=== PATIENT | male | born 1990 | race Caucasian/White ===

== ENCOUNTER 2024-02-21 17:34 | Outpatient (CLI) | payer MEDICARE, MEDICAID | END 2024-02-21 23:59 | disposition critical access hospital (66) | LOC: EMS 17:34 | DX: F10.129 Alcohol abuse with intoxication, unspecified (principal); R40.4 Transient alteration of awareness | CPT/HCPCS: A0425; A0429 ==

== ENCOUNTER 2024-02-21 17:53 | Emergency (ER) | payer MEDICARE, MEDICAID ==
[2024-02-21 19:08] LABS: BASOPHILS % (AUTO) 0.4 %; EOSINOPHILS % (AUTO) 0.4 %; HCT - HEMATOCRIT 47.1 % (42.0-52.0); HGB - HEMOGLOBIN 15.3 g/dL (14.0-18.0); LYMPHOCYTES # (AUTO) 1.4 10^3/uL (1.5-3.5); MEAN CORPUSCULAR HEMOGLOBIN 29.7 pg (27.0-31.0); MEAN CORPUSCULAR HGB CONC 32.5 g/dL (32.0-36.0); MEAN CORPUSCULAR VOLUME 91.3 fL (80.0-94.0); MEAN PLATELET VOLUME 9.4 fL (7.4-11.4); MONOCYTES # (AUTO) 0.5 10^3/uL (0.0-1.0); MONOCYTES % (AUTO) 5.8 %; NEUTROPHILS % (AUTO) 74.8 %; PLT - PLATELET COUNT 299 10^3/uL (130-450); RED BLOOD COUNT 5.16 10^6/uL (4.70-6.10); RED CELL DISTRIBUTION WIDTH 12.6 % (12.0-15.0)
[2024-02-21] MEDS: THIAMINE INJ 100 MG, MAGNESIUM SULFATE 2 GM, MULTIVITAMIN 10 ML, FOLIC ACID INJ 1 MG in... IV STA (19:10)
[2024-02-21 19:18] LABS: ETOH - ETHANOL 283.4 mg/dL
[2024-02-21 19:20] LABS: POTASSIUM 4.3 mmol/L (3.5-4.5)
[2024-02-21 19:22] LABS: ALBUMIN 4.7 g/dL (3.2-5.5); ALBUMIN/GLOBULIN RATIO 1.6 (1.0-2.2); BILIRUBIN,TOTAL 0.6 mg/dL (0.2-1.0); CALCIUM 9.8 mg/dL (8.5-10.3); CREATININE 0.9 mg/dL (0.6-1.3); TOTAL PROTEIN 7.7 g/dL (6.4-8.9)
[2024-02-21] MEDS ORDERED: THIAMINE 100 MG/1 ML 2 ML MDV ONE (19:29)
[2024-02-21] MEDS ORDERED: FOLIC ACID 5 MG/1 ML 10ML MDV ONE (19:29)
[2024-02-21] MEDS: THIAMINE INJ 100 MG, FOLIC ACID INJ 1 MG in SODIUM CHLORIDE 0.9% 1,000 ML IV STA (19:38)
[2024-02-21 20:16] LABS: BILIRUBIN,URINE NEGATIVE (NEGATIVE); GLUCOSE, URINE (UA) NEGATIVE (NEGATIVE); KETONES,URINE (UA) NEGATIVE (NEGATIVE); LEUKOCYTE ESTERASE, URINE NEGATIVE (NEGATIVE); NITRITE,URINE NEGATIVE (NEGATIVE); OCCULT BLOOD,URINE NEGATIVE (NEGATIVE); PH,URINE 5.5 PH (5.0-7.5); PROTEIN,URINE NEGATIVE (NEGATIVE); UROBILINOGEN,URINE 0.2 (NORMAL) E.U./dL (NORMAL)
[2024-02-21 20:21] LABS: CLARITY,URINE CLEAR (CLEAR)
[2024-02-21 20:29] LABS: AMPHETAMINE SCREEN,URINE NEGATIVE (NEGATIVE); BARBITURATE SCREEN,UR NEGATIVE (NEGATIVE); BENZODIAZEPINES SCREEN, URINE NEGATIVE (NEGATIVE); BUPRENORPHINE SCREEN, URINE NEGATIVE (NEGATIVE); COCAINE SCREEN URINE NEGATIVE (NEGATIVE); METHADONE SCREEN, URINE NEGATIVE (NEGATIVE); METHAMPHETAMINES SCREEN, URINE NEGATIVE (NEGATIVE); OPIATE SCREEN, URINE NEGATIVE (NEGATIVE); OXYCODONE SCREEN, URINE NEGATIVE (NEGATIVE); THC CANNABINOID SCREEN, URINE NEGATIVE (NEGATIVE); TRICYCLIC ANTIDEPRESSANT,URINE NEGATIVE (NEGATIVE)
--- NOTE | 2024-02-21 20:55 | ED Physician Documentation ---
History of Present Illness - Stated complaint Stated Complaint: UNRESPONSIVE/ETOH - Chief complaint Chief Complaint: General - History obtained from History obtained from: Patient, EMS - Additonal information Additional information: 33yM bibems for alcohol intoxication, undomiciled with no other acute complaints. patient is new to area from [place] per sports book writer notes. patient is noncompliant with history/poor historian. PD PAST MEDICAL HISTORY - Allergies Allergies/Adverse Reactions: Allergies Allergy/AdvReac Type Severity Reaction Status Date / Time No Known Drug Allergies Allergy Verified 02/21/24 18:07 - Social History Does the pt smoke?: No Smoking Status: Never smoker PD ED PE NORMAL - Vitals Vital signs reviewed: Yes - General General: Alert and oriented X 3, No acute distress, Well developed/nourished, Other (disheveled appearing) - HEENT HEENT: Atraumatic, PERRL, EOMI, Moist mucous membranes, Pharynx benign - Neck Neck: Supple, no meningeal sign - Cardiac Cardiac: RRR - Respiratory Respiratory: No respiratory distress, Clear bilaterally - Abdomen Abdomen: Non tender, Non distended - Neuro Neuro: Other (clinically intoxicated) Results - Vitals Vitals: Vital Signs - 24 hr 02/21/24 02/21/24 02/21/24 17:58 18:07 20:07 Temperature 36.2 C L 36.5 C 36.5 C Heart Rate 104 H 104 H 100 Respiratory 20 20 18 Rate Blood Pressure 132/77 H 132/77 H 112/60 O2 Saturation 95 95 96 02/21/24 02/22/24 22:00 00:00 Temperature 36.8 C Heart Rate 95 93 Respiratory 16 16 Rate Blood Pressure 129/92 H 128/84 H O2 Saturation 97 94 Oxygen O2 Source Room air - Labs Labs: Laboratory Tests 02/21/24 02/21/24 02/21/24 18:00 18:00 19:08 WBC 8.0 RBC 5.16 Hgb 15.3 Hct 47.1 MCV 91.3 MCH 29.7 MCHC 32.5 RDW 12.6 Plt Count 299 MPV 9.4 Neut # (Auto) 6.0 Lymph # (Auto) 1.4 L [place] # (Auto) 0.5 Eos # (Auto) 0.0 Baso # (Auto) 0.0 Absolute Nucleated RBC 0.00 Nucleated RBC % 0.0 Sodium 138 Potassium 4.3 Chloride 103 Carbon Dioxide 26 Anion Gap 9.0 BUN 12 Creatinine 0.9 Estimated GFR (MDRD) 97 Glucose 85 Calcium 9.8 Total Bilirubin 0.6 AST 19 ALT 29 Alkaline Phosphatase 67 Total Protein 7.7 Albumin 4.7 Globulin 3.0 Albumin/Globulin Ratio 1.6 Lipase 30 Urine Color YELLOW Urine Clarity CLEAR Urine pH 5.5 Ur Specific [place] 1.010 Urine Protein NEGATIVE Urine Glucose (UA) NEGATIVE Urine Ketones NEGATIVE Urine Occult Blood NEGATIVE Urine Nitrite NEGATIVE Urine Bilirubin NEGATIVE Urine Urobilinogen 0.2 (NORMAL) Ur Leukocyte Esterase NEGATIVE Ur Microscopic Review NOT INDICATED Urine Culture Comments NOT INDICATED Urine Opiates Screen NEGATIVE Ur Buprenorphine Scrn NEGATIVE Ur Oxycodone Screen NEGATIVE Urine Methadone Screen NEGATIVE Ur Barbiturates Screen NEGATIVE Ur Tricyclics Screen NEGATIVE Ur Phencyclidine Scrn NEGATIVE Ur Amphetamine Screen NEGATIVE U Methamphetamines Scrn NEGATIVE U Benzodiazepines Scrn NEGATIVE Urine Cocaine Screen NEGATIVE U Cannabinoids Screen NEGATIVE Ur Drug Screen Comment CUTOFF CONC BELOW: Ethyl Alcohol 283.4 PD Medical Decision Making - ED course ED course: 33yM p/w acute alcohol intoxication tonight. he is calm and complaint with staff . labwork looks benign, albeit with elevated alcohol level. plan to endorse to incoming daytime ed md at 7am shift change pending sobriety and possible conversation with social work to discuss alcohol treatment options. Departure - Departure Clinical Impression: Alcohol abuse Condition: Stable Instructions: Addiction Alcohol Comments: You were seen in the emergency department for alcohol intoxication. Please follow-up with a primary care provider (referral provided) for additional addiction treatment resources and return to the emergency department if you have any new or worsening symptoms or other concerns. Counts Include [facility] Stabilization [address] [address] ~7.5 vt Forms: PCP List
[2024-02-22 07:03] VITALS: BP 125/82; O2SAT 98
== END 2024-02-22 06:58 | disposition home or self-care (01) ==
LOC: ED 17:53
DX: F10.10 Alcohol abuse, uncomplicated (principal); Y90.8 Blood alcohol level of 240 mg/100 ml or more; Z59.00 Homelessness unspecified
CPT/HCPCS: 36415; 80053; 80306; 81003; 83690; 85025; 96365; 96366; 99284; G0480; J3411; 81001; 82077; 85610; 87086

== ENCOUNTER 2024-03-13 16:33 | Outpatient (CLI) | payer MEDICARE, MEDICAID | END 2024-03-13 23:59 | disposition critical access hospital (66) | LOC: EMS 16:33 | DX: F10.90 Alcohol use, unspecified, uncomplicated (principal) | CPT/HCPCS: A0425; A0429 ==

== ENCOUNTER 2024-03-13 16:52 | Emergency (ER) | payer MEDICARE, MEDICAID ==
--- NOTE | 2024-03-13 16:58 | ED Physician Documentation ---
History of Present Illness - Stated complaint Stated Complaint: ETOH - Chief complaint Chief Complaint: General - History obtained from History obtained from: Patient - History of Present Illness Timing: Today Pain level max: 0 Pain level now: 0 - Additonal information Additional information: 33-year-old male brought in by EMS today because he was drinking and fell asleep behind a dumpster. He has no complaints. He is new to the area from [place]. Review of Systems Unable to obtain: Intoxicated Constitutional: denies: Fever Cardiac: denies: Chest pain / pressure Respiratory: denies: Dyspnea, Cough GI: denies: Abdominal Pain, Nausea, Vomiting, Diarrhea : denies: Dysuria, Frequency, Hesitancy Skin: denies: Rash Musculoskeletal: denies: Neck pain, Back pain Neurologic: denies: Headache PD PAST MEDICAL HISTORY - Past Medical History Past Medical History: No - Past Surgical History Past Surgical History: No - Present Medications Home Medications: Ambulatory Orders Medication Instructions Recorded Confirmed No Known Home Medications 03/13/24 03/13/24 - Allergies Allergies/Adverse Reactions: Allergies Allergy/AdvReac Type Severity Reaction Status Date / Time No Known Drug Allergies Allergy Verified 02/21/24 18:07 - Living Situation Living Arrangement: reports: Homeless - Social History Does the pt smoke?: No Smoking Status: Never smoker Does the pt drink ETOH?: Yes - Family History Family history: reports: Non contributory PD ED PE NORMAL - Vitals Vital signs reviewed: Yes - General General: No acute distress, Other (intoxicated, Drowsy but arousable, falls back asleep quickly.) - HEENT HEENT: PERRL, Moist mucous membranes - Neck Neck: Supple, no meningeal sign - Cardiac Cardiac: RRR - Respiratory Respiratory: No respiratory distress, Clear bilaterally - Abdomen Abdomen: Soft, Non tender, Non distended - Derm Derm: Warm and dry - Neuro Neuro: Other (Drowsy but arousable, falls back asleep quickly.) Eye Opening: Spontaneous Motor: Obeys Commands Verbal: Oriented GCS Score: 15 - Psych Psych: Normal mood, Normal affect Results - Vitals Vitals: Vital Signs - 24 hr 03/13/24 03/13/24 17:04 21:00 Temperature 36.4 C L Heart Rate 95 83 Respiratory 21 16 Rate Blood Pressure 123/71 O2 Saturation 93 94 Oxygen O2 Source Room air - Labs Labs: Laboratory Tests 03/13/24 03/13/24 03/13/24 17:07 17:07 17:36 WBC 5.7 RBC 4.75 Hgb 14.1 Hct 43.6 MCV 91.8 MCH 29.7 MCHC 32.3 RDW 12.5 Plt Count 288 MPV 9.5 Neut # (Auto) 4.1 Lymph # (Auto) 1.1 L [place] # (Auto) 0.4 Eos # (Auto) 0.1 Baso # (Auto) 0.0 Absolute Nucleated RBC 0.00 Nucleated RBC % 0.0 Sodium 139 Potassium 3.8 Chloride 106 Carbon Dioxide 24 Anion Gap 9.0 BUN 11 Creatinine 0.8 Estimated GFR (MDRD) 111 Glucose 91 Calcium 9.2 Magnesium 1.9 Total Bilirubin 0.7 AST 18 ALT 35 Alkaline Phosphatase 66 Total Protein 6.9 Albumin 4.4 Globulin 2.5 Albumin/Globulin Ratio 1.8 Lipase 27 TSH 0.70 Urine Color STRAW Urine Clarity CLEAR Urine pH 6.0 Ur Specific [place] <=1.005 Urine Protein NEGATIVE Urine Glucose (UA) NEGATIVE Urine Ketones NEGATIVE Urine Occult Blood NEGATIVE Urine Nitrite NEGATIVE Urine Bilirubin NEGATIVE Urine Urobilinogen 0.2 (NORMAL) Ur Leukocyte Esterase NEGATIVE Ur Microscopic Review NOT INDICATED Urine Culture Comments NOT INDICATED Salicylates < 1.5 Urine Opiates Screen NEGATIVE Ur Buprenorphine Scrn NEGATIVE Ur Oxycodone Screen NEGATIVE Urine Methadone Screen NEGATIVE Acetaminophen 0.1 Ur Barbiturates Screen NEGATIVE Ur Tricyclics Screen NEGATIVE Ur Phencyclidine Scrn NEGATIVE Ur Amphetamine Screen NEGATIVE U Methamphetamines Scrn NEGATIVE U Benzodiazepines Scrn NEGATIVE Urine Cocaine Screen NEGATIVE U Cannabinoids Screen NEGATIVE Ur Drug Screen Comment CUTOFF CONC BELOW: Ethyl Alcohol 260.5 PD Medical Decision Making - ED course Complexity details: reviewed results, re-evaluated patient, considered differential, d/w patient ED course: No acute findings on laboratory testing other than alcohol intoxication. Patient is still drowsy and unstable on his feet. Will allow him to sober in the emergency department at which time he will be reassessed and likely be able to be discharged. Patient was signed out to Dr. Carballo. This document was made in part using voice recognition software. While efforts are made to proofread this document, sound alike and grammatical errors may occur. Departure - Departure Clinical Impression: Alcohol intoxication Qualifiers: Complication of substance-induced condition: uncomplicated Qualified Code(s): F10.920 - Alcohol use, unspecified with intoxication, uncomplicated Condition: Stable Forms: PCP List
[2024-03-13] MEDS: SODIUM CHLORIDE 0.9% 1,000 ML IV STA (17:22)
[2024-03-13 17:40] LABS: ACETAMINOPHEN 0.1 ug/mL; ALBUMIN 4.4 g/dL (3.2-5.5); ALBUMIN/GLOBULIN RATIO 1.8 (1.0-2.2); ALKALINE PHOSPHATASE 66 IU/L (42-121); ALT ALANINE AMINOTRANSFERASE 35 IU/L (10-60); AST ASPARTATE AMINOTRANSFERASE 18 IU/L (10-42); BILIRUBIN,TOTAL 0.7 mg/dL (0.2-1.0); BUN - BLOOD UREA NITROGEN 11 mg/dL (6-20); CALCIUM 9.2 mg/dL (8.5-10.3); CARBON DIOXIDE - CO2 24 mmol/L (21-32); CHLORIDE 106 mmol/L (101-111); CREATININE 0.8 mg/dL (0.6-1.3); ETOH - ETHANOL 260.5 mg/dL; GFR - MDRD 111 (>89); GLUCOSE 91 mg/dL (74-104); LIPASE 27 U/L (11-82); MAGNESIUM 1.9 mg/dL (1.7-2.3); POTASSIUM 3.8 mmol/L (3.5-4.5); SODIUM 139 mmol/L (135-145); TOTAL PROTEIN 6.9 g/dL (6.4-8.9)
[2024-03-13 17:42] LABS: BASOPHILS % (AUTO) 0.7 %; EOSINOPHILS # (AUTO) 0.1 10^3/uL (0.0-0.7); EOSINOPHILS % (AUTO) 0.9 %; HCT - HEMATOCRIT 43.6 % (42.0-52.0); HGB - HEMOGLOBIN 14.1 g/dL (14.0-18.0); LYMPHOCYTES # (AUTO) 1.1 10^3/uL (1.5-3.5); LYMPHOCYTES % (AUTO) 19.9 %; MEAN CORPUSCULAR HEMOGLOBIN 29.7 pg (27.0-31.0); MEAN CORPUSCULAR HGB CONC 32.3 g/dL (32.0-36.0); MEAN CORPUSCULAR VOLUME 91.8 fL (80.0-94.0); MEAN PLATELET VOLUME 9.5 fL (7.4-11.4); MONOCYTES # (AUTO) 0.4 10^3/uL (0.0-1.0); MONOCYTES % (AUTO) 6.3 %; NEUTROPHILS # (AUTO) 4.1 10^3/uL (1.5-6.6); NEUTROPHILS % (AUTO) 71.8 %; PLT - PLATELET COUNT 288 10^3/uL (130-450); RED BLOOD COUNT 4.75 10^6/uL (4.70-6.10); RED CELL DISTRIBUTION WIDTH 12.5 % (12.0-15.0); WHITE BLOOD COUNT 5.7 x10^3/uL (4.8-10.8)
[2024-03-13 17:43] LABS: SALICYLATE < 1.5 mg/dL
[2024-03-13 17:54] LABS: BILIRUBIN,URINE NEGATIVE (NEGATIVE); GLUCOSE, URINE (UA) NEGATIVE (NEGATIVE); KETONES,URINE (UA) NEGATIVE (NEGATIVE); LEUKOCYTE ESTERASE, URINE NEGATIVE (NEGATIVE); NITRITE,URINE NEGATIVE (NEGATIVE); OCCULT BLOOD,URINE NEGATIVE (NEGATIVE); PROTEIN,URINE NEGATIVE (NEGATIVE); UROBILINOGEN,URINE 0.2 (NORMAL) E.U./dL (NORMAL)
[2024-03-13 17:55] LABS: CLARITY,URINE CLEAR (CLEAR)
[2024-03-13 18:08] LABS: AMPHETAMINE SCREEN,URINE NEGATIVE (NEGATIVE); BARBITURATE SCREEN,UR NEGATIVE (NEGATIVE); BENZODIAZEPINES SCREEN, URINE NEGATIVE (NEGATIVE); BUPRENORPHINE SCREEN, URINE NEGATIVE (NEGATIVE); COCAINE SCREEN URINE NEGATIVE (NEGATIVE); METHADONE SCREEN, URINE NEGATIVE (NEGATIVE); METHAMPHETAMINES SCREEN, URINE NEGATIVE (NEGATIVE); OPIATE SCREEN, URINE NEGATIVE (NEGATIVE); OXYCODONE SCREEN, URINE NEGATIVE (NEGATIVE); THC CANNABINOID SCREEN, URINE NEGATIVE (NEGATIVE); TRICYCLIC ANTIDEPRESSANT,URINE NEGATIVE (NEGATIVE)
--- NOTE | 2024-03-14 03:30 | ED Physician Documentation ---
ED Addendum - Addendum Addendum: 03/14/24 03:28 Patient endorsed to me by Dr. Arevalo at 10 PM shift change pending sobriety. Patient is clinically sober at this time and willing to be discharged. Large jug of water was provided and patient is tolerating p.o. Resources for addiction treatment provided. Disposition home Impression 1. alcohol dependence 2. homelessness Condition stable
[2024-03-14 03:55] VITALS: BP 122/86; O2SAT 99
== END 2024-03-14 03:49 | disposition home or self-care (01) ==
LOC: EDUNIT# → ED 16:52
DX: F10.220 Alcohol dependence with intoxication, uncomplicated (principal); Y90.8 Blood alcohol level of 240 mg/100 ml or more; Z59.00 Homelessness unspecified
CPT/HCPCS: 36415; 80053; 80143; 80306; 81003; 83690; 83735; 84443; 85025; 99283; 99284; G0480; 80179; 81001; 82077; 82550; 87086